=== PATIENT | male | born 1995 | race Caucasian/White ===

== ENCOUNTER 2017-02-25 21:19 | Emergency (ER) | payer BC ==
--- NOTE | ~2017-02-25 | CR20 ---
[facility] A Service of [facility] & [facility] RADIOLOGY TEXT RESULTS PATIENT: MUKUND MON LOCATION: CFTX : [birth year] UNIT #: [id number] AGE: [address]: Trino Bains SEX: M ORDER DR: [id number] [facility] [address] [place], [place] [address] [id number] MR#: [id number] Acc #: [id number] NAME: MUKUND MON : 1995 SEX: M STUDY DATE/TIME: 02/25/2017 22:29 UNIT: [facility] ROOM: STUDY DESCRIPTION: CR Ankle Min 3 Views Lt Attending Physician: Trino Bains P.A.-C. Ordering Physician: Trino Bains P.A.-C. Primary Care Physician: Shakir Oscar M.D. MEDICAL IMAGING REPORT This report is preliminary unless electronic signature is present EXAM Left ankle series INDICATION Left ankle pain after an injury today. PROCEDURE 3 views of left ankle COMPARISON None FINDINGS No acute fracture. No dislocation. IMPRESSION No acute findings. Dictated by... Mynor Gill M.D. THIS IS AN ELECTRONICALLY VERIFIED REPORT Mynor Gill M.D. at 03/02/2017 7:25 AM Ariana TD: 02/26/2017 09:32 JOB #: [id number] MEDICAL IMAGING REPORT Page 1 of 1 COPY
== END 2017-02-26 00:01 | disposition home or self-care (01) ==
LOC: CFTX 21:19 → CED 21:19 → CFTX 23:15
DX: M25.572 Pain in left ankle and joints of left foot (principal)
CPT/HCPCS: 29540; 73610; 99283